=== PATIENT | male | born 1960 ===

== ENCOUNTER 2018-07-30 12:42 | Emergency (ER) | payer OTHER, SELFPAY ==
[2018-07-30 12:53] VITALS: RESP 16; TEMP 98.7; O2SAT 97
[2018-07-30] MEDS ORDERED: Sodium Chloride 0.9% 1,000 ML IV STA (13:57)
[2018-07-30 14:17] LABS: BASO % 0.2 % (0.0-2.0); EOS # 0.2 K/uL (0.0-0.7); EOS % 3.7 % (0.0-4.0); HEMOGLOBIN 14.3 g/dL (12.0-18.0); LYMPH # 2.1 K/uL (1.0-4.3); LYMPH % 48.1 % (20.0-40.0); MEAN CELL VOLUME 87.7 fl (80.0-94.0); MEAN CORPUSCULAR HEMOGLOBIN 29.1 pg (27.0-31.0); MEAN CORPUSCULAR HGB CONC 33.2 g/dL (33.0-37.0); MEAN PLATELET VOLUME 7.8 fl (7.2-11.7); MONO # 0.3 K/uL (0.0-0.8); MONO % 7.1 % (0.0-10.0); NEUT # 1.8 K/uL (1.8-7.0); NEUT % 40.9 % (50.0-75.0); NRBC % 0.2 % (0.0-0.0); RBC 4.9 Mil/uL (4.40-5.90); RED CELL DISTRIBUTION WIDTH 12.2 % (11.5-14.5); WHITE BLOOD COUNT 4.4 K/uL (4.8-10.8)
--- NOTE | 2018-07-30 14:19 | RAD ---
Date of service: 07/30/2018 HISTORY: possible admission COMPARISON: No prior. FINDINGS: LUNGS: Mild bibasilar crowding probably related to poor expiratory effort. No focal infiltrate. PLEURA: No significant pleural effusion identified, no pneumothorax apparent. CARDIOVASCULAR: Normal. OSSEOUS STRUCTURES: No significant abnormalities. VISUALIZED UPPER ABDOMEN: Normal. OTHER FINDINGS: None. IMPRESSION: No focal alveolar infiltrate.
[2018-07-30 14:33] LABS: BLOOD UREA NITROGEN 8 mg/dl (9-20); CALCIUM 8.9 mg/dL (8.4-10.2); GFR NON-AFRICAN AMERICAN > 60
[2018-07-30 14:46] LABS: B-TYPE NATRIURETIC PEPTIDE 57.1 pg/ml (0-900)
--- NOTE | 2018-07-30 15:04 | ED PDOC ---
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 Patient reports dizziness is a common symptom when his blood pressure is high. He usually takes his medications for diabetes and hypertension. However, he states he has not been taking medications because it makes him bloated. He further states he gets dizzy when he takes too much diabetes medication and his blood sugar drops below 200. Patient is a poor historian and withholds information unless asked in multiple ways. He denies shortness of breath, chest pain, fever, abdominal pain or any other medical complaints. When asked about a large mass on the helix of the ear, he states he never had a workup on the childhood injury even though it has been getting bigger. When provider mentioned to follow up with PMD to rule our cancer, he admitted he was diagnosed with prostate cancer 2 weeks ago. PMD: Dr. Ortega Past Medical History Reviewed: Historical Data, Nursing Documentation, Vital Signs Vital Signs: Last Vital Signs Temp 98.7 F 07/30/18 12:51 Pulse 60 07/30/18 15:15 Resp 16 07/30/18 12:51 BP 132/74 07/30/18 15:15 Pulse Ox 97 07/30/18 15:10 - Medical History PMH: Diabetes, HTN, Hypercholesterolemia Other PMH: prostate cancer - Family History Family History: States: Unknown Family Hx - Immunization History Hx Tetanus Toxoid Vaccination: No Hx Influenza Vaccination: Yes Hx Pneumococcal Vaccination: No - Home Medications Home Medications: Ambulatory Orders Medication Instructions Recorded Naproxen 375 mg PO TIDPC #14 tablet 09/13/17 MetFORMIN [glucoPHAGE] 500 mg PO BID #60 tab 07/30/18 amLODIPine [Norvasc] 10 mg PO DAILY #30 tab 07/30/18 - Allergies Allergies/Adverse Reactions: Allergies Allergy/AdvReac Type Severity Reaction Status Date / Time No Known Allergies Allergy Verified 09/13/17 22:10 Review of Systems ROS Statement: Except As Marked, All Systems Reviewed And Found Negative Constitutional: Negative for: Fever Cardiovascular: Negative for: Chest Pain Respiratory: Negative for: Shortness of Breath Gastrointestinal: Negative for: Abdominal Pain Neurological: Positive for: Dizziness Physical Exam - Reviewed Nursing Documentation Reviewed: Yes Vital Signs Reviewed: Yes - Physical Exam Appears: Positive for: Non-toxic, No Acute Distress Head Exam: Positive for: ATRAUMATIC, NORMOCEPHALIC Skin: Positive for: Normal Color, Warm, Dry Eye Exam: Positive for: Normal appearance, EOMI, PERRL ENT: Positive for: Other (large dark hardened mass to left helix with irregular borders, no lymphadenopathy ) Cardiovascular/Chest: Positive for: Regular Rate, Rhythm Respiratory: Positive for: Normal Breath Sounds Gastrointestinal/Abdominal: Positive for: Normal Exam, Soft. Negative for: Tenderness Extremity: Positive for: Normal ROM (upper and lower) Neurologic/Psych: Positive for: Alert, mail superintendent II-XII (grossly intact), Oriented - Laboratory Results Result Diagrams: 07/30/18 14:12 07/30/18 14:12 - ECG O2 Sat by Pulse Oximetry: 97 (RA) Pulse Ox Interpretation: Normal Medical Decision Making Medical Decision Making: Time: 1259 Workup for htn and hyperglycemia Initial Plan: --basic labs Cardiac workup for dizziness Initial Plan: --basic labs --EKG --home medications, amlodipine and metformin, given Patient will be reassessed. ---- Scribe Attestation: Documented by Sandhya Shen, acting as a scribe for Blanca Meade MD Provider Scribe Attestation: All medical record entries made by the Scribe were at my direction and personally dictated by me. I have reviewed the chart and agree that the record accurately reflects my personal performance of the history, physical exam, medical decision making, and the department course for this patient. I have also personally directed, reviewed, and agree with the discharge instructions and disposition. Disposition - Clinical Impression Clinical Impression: Dizziness, Hyperglycemia due to type 2 diabetes mellitus, Hypertension - Disposition Referrals: Comfort Euceda MD [Primary Care Provider] - Disposition: Routine/Home Disposition Time: 15:33 Condition: IMPROVED Additional Instructions: Follow up with your primary medical doctor for dose adjustments of medications. Take all medications as prescribed by your primary medical doctor. Tell you doctor that you are concerned that your medications as making you dizzy. Today you were given Amlodipine and Metformin with improvement in your blood sugar and your blood pressure. Your EKG, labs, and CXR were otherwise normal. Return to the emergency department if you develop chest pain, trouble breathing, lethargy, fever, or other new symptoms. Prescriptions: amLODIPine [Norvasc] 10 mg PO DAILY #30 tab MetFORMIN [glucoPHAGE] 500 mg PO BID #60 tab Instructions: Hyperglycemia, Adult, High Blood Pressure (DC), Hyperglycemia, Adult (DC), Diabetes Type 2 (DC), Controlling Your Blood Pressure Through Lifestyle Forms: [employer] (Serbian), [employer] (Greek) Print Language: MALTESE
[2018-07-30 15:16] VITALS: BP 132/74; PULSE 60
--- NOTE | 2018-07-30 18:39 | CARD ---
APPROVED REPORT Date of service: 07/30/2018 EKG Measurement Heart [id number] 200P25 [id number] <Conclusion> Sinus bradycardia Otherwise normal ECG
== END 2018-07-30 15:41 | disposition home or self-care (01) ==
LOC: H.ER 12:42
DX: R42 Dizziness and giddiness (principal); E11.65 Type 2 diabetes mellitus with hyperglycemia; I10 Essential (primary) hypertension; E78.00 Pure hypercholesterolemia, unspecified; Z79.84 Long term (current) use of oral hypoglycemic drugs; Z85.46 Personal history of malignant neoplasm of prostate
CPT/HCPCS: 71045; 80048; 82948; 83880; 84484; 85025; 93005; 96360; 99283; J7030

== ENCOUNTER 2018-11-13 23:36 | Emergency (ER) | payer MEDICAID, OTHER ==
[2018-11-13 23:53] VITALS: RESP 18; O2SAT 100
[2018-11-14] MEDS ORDERED: Oxycodone/Acetaminophen 5/325 mg Tab PO ONE (00:28)
--- NOTE | 2018-11-14 00:41 | ED PDOC ---
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 Patient states that the pain was associated with complete stiffness of his left arm, which has since slightly improved, but notes his range of motion is still limited. He reports a similar episode happened in the past and was worked up with no significant results. Of note, patient has prostate cancer which he begins chemotherapy for tomorrow. Denies cough, shortness of breath, fever, and chills. PMD: in [place] Past Medical History Reviewed: Historical Data, Nursing Documentation, Vital Signs Vital Signs: Last Vital Signs Temp 97.7 F 11/13/18 23:51 Pulse 60 11/13/18 23:51 Resp 18 11/13/18 23:51 BP 127/71 11/13/18 23:51 Pulse Ox 100 11/13/18 23:51 - Medical History PMH: Diabetes, HTN, Hypercholesterolemia Other PMH: prostate cancer - Surgical History Surgical History: No Surg Hx - Family History Family History: States: Unknown Family Hx - Social History Current smoker - smoking cessation education provided: No Alcohol: None Drugs: Denies - Immunization History Hx Tetanus Toxoid Vaccination: No Hx Influenza Vaccination: Yes Hx Pneumococcal Vaccination: No - Home Medications Home Medications: Ambulatory Orders Medication Instructions Recorded Naproxen 375 mg PO TIDPC #14 tablet 09/13/17 MetFORMIN [glucoPHAGE] 500 mg PO BID #60 tab 07/30/18 amLODIPine [Norvasc] 10 mg PO DAILY #30 tab 07/30/18 - Allergies Allergies/Adverse Reactions: Allergies Allergy/AdvReac Type Severity Reaction Status Date / Time No Known Allergies Allergy Verified 09/13/17 22:10 RAISSA Risk Score for UA/NSTEMI - RAISSA Risk Score Age > 64: NO 3 or more CAD Risk Factors: NO Known CAD (Stenosis greater than 50%): NO Aspirin use in past 7 days: NO Severe Angina: NO EKG ST changes greater than 0.5mm: NO Positive Cardiac Marker: NO RAISSA Score: 0 Risk %: 5% Wells Criteria for PE - Wells Criteria for Pulmonary Embolism Clinical Signs and Symptoms of DVT: No P.E is #1 Diagnosis, or Equally Likely: No Heart Rate >100: No Immobilization at least 3 days;Surgery previous 4 weeks: No Previous, objectively diagnosed PE or DVT: No Hemoptysis: No Malignancy w/treatment within 6 months, or palliative: No Total Score: 0 Review of Systems ROS Statement: Except As Marked, All Systems Reviewed And Found Negative Constitutional: Negative for: Fever, Chills Cardiovascular: Positive for: Chest Pain (left) Respiratory: Negative for: Cough, Shortness of Breath Musculoskeletal: Positive for: Other (left arm stiffness) Physical Exam - Reviewed Nursing Documentation Reviewed: Yes Vital Signs Reviewed: Yes - Physical Exam Appears: Positive for: No Acute Distress Head Exam: Positive for: ATRAUMATIC, NORMOCEPHALIC Skin: Positive for: Normal Color, Warm Eye Exam: Positive for: Normal appearance, EOMI, PERRL Neck: Positive for: Normal, Painless ROM, Supple Cardiovascular/Chest: Positive for: Regular Rate, Rhythm. Negative for: Chest Non Tender (reproducible tenderness to left upper chest wall) Respiratory: Positive for: Normal Breath Sounds. Negative for: Respiratory Distress Gastrointestinal/Abdominal: Positive for: Normal Exam, Soft. Negative for: Tenderness Extremity: Negative for: Normal ROM (normal range of motion of left arm until approx. 90 degrees, then elevation above that point reproduces left upper chest wall pain) Neurologic/Psych: Positive for: Alert, Oriented (x3) - Laboratory Results Result Diagrams: 11/14/18 01:40 11/14/18 01:40 - ECG ECG: Positive for: Interpreted By Me, Viewed By Me ECG Rhythm: Positive for: Normal QRS, Normal ST Segment, Sinus Bradycardia (at 57 bpm) O2 Sat by Pulse Oximetry: 100 (RA) Pulse Ox Interpretation: Normal Medical Decision Making Medical Decision Making: Time: 14 Initial Impression: left chest wall tenderness, r/o cardiac cause Initial Plan: --CMP --Trop I --CBC with differential --Percocet 1 tab PO --Left shoulder XR 0306 Labs reviewed and are within normal limits except glucose level slightly elevated. Shoulder XR was sent for an official read, results pending. 0332 XR Shoulder Findings: There are changes of degenerative joint disease. No fracture or dislocation is seen. No aggressive bone lesion is noted. Impression: No radiographic evidence of an acute pathology. 0500 Second troponin was negative. Patient stable for discharge with diagnosis of muscular chest pain. Scribe Attestation: Documented by Pham Ortiz acting as a scribe for Sherri Adams MD. Provider Scribe Attestation: All medical record entries made by the Scribe were at my direction and personally dictated by me. I have reviewed the chart and agree that the record accurately reflects my personal performance of the history, physical exam, m edical decision making, and the department course for this patient. I have also personally directed, reviewed, and agree with the discharge instructions and disposition. Disposition - Disposition Disposition: Routine/Home Disposition Time: 05:01 Forms: [employer] (Italian)
[2018-11-14 02:03] LABS: ALB/GLOB RATIO 1.2 (1.0-2.1); ALBUMIN 3.8 g/dL (3.5-5.0); ALT/SGPT 30 U/L (21-72); AST/SGOT 30 U/L (17-59); BLOOD UREA NITROGEN 17 mg/dl (9-20); CALCIUM 9.2 mg/dL (8.4-10.2); GFR NON-AFRICAN AMERICAN > 60
[2018-11-14 02:07] LABS: BASO # 0.1 K/uL (0.0-0.2); BASO % 1.4 % (0.0-2.0); EOS # 0.2 K/uL (0.0-0.7); EOS % 3.2 % (0.0-4.0); HEMOGLOBIN 13.6 g/dL (12.0-18.0); LYMPH # 2.4 K/uL (1.0-4.3); LYMPH % 40.5 % (20.0-40.0); MEAN CELL VOLUME 90.6 fl (80.0-94.0); MEAN CORPUSCULAR HEMOGLOBIN 29.2 pg (27.0-31.0); MEAN CORPUSCULAR HGB CONC 32.2 g/dL (33.0-37.0); MEAN PLATELET VOLUME 7.5 fl (7.2-11.7); MONO # 0.4 K/uL (0.0-0.8); NEUT # 2.8 K/uL (1.8-7.0); NEUT % 47.9 % (50.0-75.0); NRBC % 0.1 % (0.0-0.0); RBC 4.66 Mil/uL (4.40-5.90); RED CELL DISTRIBUTION WIDTH 11.8 % (11.5-14.5); WHITE BLOOD COUNT 5.8 K/uL (4.8-10.8)
[2018-11-14 06:47] VITALS: BP 118/67; PULSE 67; TEMP 98.1
--- NOTE | 2018-11-14 09:52 | RAD ---
Date of service: 11/14/2018 PROCEDURE: Radiographs of the Left Shoulder HISTORY: shoulder pain, sudden onset COMPARISON: No prior. FINDINGS: BONES: No fracture. Sclerotic changes border the tuberosities-findings compatible with degenerative changes. JOINTS: Glenohumeral and acromioclavicular joint arthrosis. SOFT TISSUES: Normal. OTHER FINDINGS: Thoracic spondylosis noted. IMPRESSION: No fracture or lytic lesion. Left shoulder arthrosis with senescent changes as above.
--- NOTE | 2018-11-15 11:44 | CARD ---
APPROVED REPORT Date of service: 11/13/2018 EKG Measurement Heart [id number] [place] 196P30 [id number] <Conclusion> Sinus bradycardia Otherwise normal ECG
== END 2018-11-14 06:30 | disposition home or self-care (01) ==
LOC: H.ER 23:36
DX: R07.89 Other chest pain (principal); E11.9 Type 2 diabetes mellitus without complications; E78.00 Pure hypercholesterolemia, unspecified; I10 Essential (primary) hypertension; Z79.84 Long term (current) use of oral hypoglycemic drugs; Z85.46 Personal history of malignant neoplasm of prostate